=== PATIENT | male | born 1965 | race Caucasian/White ===

== ENCOUNTER 2018-03-29 19:33 | Observation (INO) | payer OTHER, MEDICAID, SELFPAY ==
[2018-03-29 19:36] VITALS: BP 145/90; PULSE 111; RESP 17; TEMP 37.1; O2SAT 97; BMI 29.7
--- NOTE | 2018-03-29 19:47 | DI.RAD.S_ITS ---
PROCEDURE: XR CHEST 1V INDICATIONS: chest pain TECHNIQUE: One view of the chest was acquired. COMPARISON: None. FINDINGS: Surgical changes and devices: None. Lungs and pleura: No pleural effusions or pneumothorax. Lungs are clear. Mediastinum: Mediastinal contours appear normal. Heart size is normal. Bones and chest wall: No suspicious bony lesions. Overlying soft tissues appear unremarkable. IMPRESSION: 1. No acute cardiopulmonary disease. Dictated by: Vishnu Alcala M.D. on 03/29/2018 at 20:16 Approved by: Vishnu Alcala M.D. on 03/29/2018 at 20:16
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
[2018-03-29] MEDS: KETOROLAC 60 MG/2 ML VIAL IM (21:04)
[2018-03-29 21:09] LABS: Add Manual Diff / Slide Review NO; Basophils Percent Auto 0.6 % (0-2); Hematocrit 44.8 % (41-53); Hemoglobin 15.5 g/dL (13.5-17.5); Lymphocytes Percent Auto 10.7 % (25-40); Mean Corpuscular HGB Conc 34.6 % (30-36); Mean Corpuscular Hemoglobin 31.2 PG (26-34); Mean Corpuscular Volume 90.3 fL (80-100); Monocytes Percent Auto 11.1 % (3-14); Neutrophils Absolute Auto 10800 /uL (3000-5900); Neutrophils Percent Auto 77.6 % (50-75); Platelet Count 189 X10^3/uL (150-400); Red Blood Cell Count 4.96 X10^6/uL (4.5-5.9); White Blood Cell Count 13.9 X10^3/uL (4.5-11.0)
[2018-03-29 21:21] LABS: Alanine Aminotransferase 56 IU/L (21-72); Albumin 5.2 g/dL (3.5-5.0); Albumin Globulin Ratio 1.8 (1.0-2.8); Alkaline Phosphatase 55 U/L (38-126); Aspartate Aminotransferase 56 IU/L (17-59); BUN Creatinine Ratio 19.2 (6-22); Bilirubin Total 1.2 mg/dL (0.2-1.3); Blood Urea Nitrogen 23 mg/dL (9-20); Calcium 10.1 mg/dL (8.4-10.2); Carbon Dioxide 28 mmol/L (22-32); Chloride 99 mmol/L (98-107); Estimated Glomerular Filt Rate > 60.0 mL/min (>60); Globulin 2.9 g/dL (1.7-4.1); Glucose 127 mg/dL (70-100); Lipase 127 U/L (23-300); Potassium 3.6 mmol/L (3.4-5.1); Sodium 138 mmol/L (137-145); Total Protein 8.1 g/dL (6.3-8.2)
[2018-03-29 21:28] LABS: Creatine Kinase 2140 U/L (55-170); HEMOLYSIS < 15 (0-50)
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
[2018-03-29 22:01] LABS: CKMB % Relative Index 0.2 % (1.5-5.0); Creatine Kinase MB 4.49 ng/mL (<2.37)
[2018-03-29 22:26] LABS: Ethanol (ETOH) < 10 mg/dL
[2018-03-29] MEDS: MORPHINE 2 MG/ML INJ IV (22:30)
[2018-03-29] MEDS: SODIUM CHLORIDE 0.9% 1,000 ML 2000 ML IV (22:30)
[2018-03-29] MEDS: PANTOPRAZOLE 40 MG VIAL IV (22:30)
[2018-03-29 22:49] LABS: Urine Amphetamines Negative (Negative); Urine Barbiturates Negative (Negative); Urine Benzodiazepines Negative (Negative); Urine Cocaine Negative (Negative); Urine MDMA Negative (Negative); Urine Methadone Negative (Negative); Urine Methamphetamines Negative (Negative); Urine Morphine/Opi cutoff 2000 Positive (Negative); Urine Oxycodone Negative (Negative); Urine Phencyclidine Negative (Negative); Urine Tetrahydrocannabinol Positive (Negative); Urine Tricyclic Antidepressant Negative (Negative)
[2018-03-29 22:49] LABS: Bacteria Urine None Seen; RBC Urine None Seen (0-5/HPF); WBC Urine None Seen (0-5/HPF)
[2018-03-29] MEDS: ONDANSETRON 4 MG/2 ML INJ IV (22:50)
--- NOTE | 2018-03-29 22:53 | PC.NURSE ---
Patient has been cooperative after provider explained plan of care. Pt states he just has been having a hard time dealing with his pain. States he has constant pain in his neck and back. Pt also states he has chronic gastritis and forgot to take his omeprazole this morning. Patient has a lot to talk about regarding his condition and has been compliant with care as long as care is explained. Pt verbalizes understanding of care and admitting process.
[2018-03-29 23:01] LABS: Culture Indicated Urine Cult Not Indicated; Urine Comments Microscopic Normal
[2018-03-30] VITALS (9 sets, daily range): BP systolic 103–171; BP diastolic 60–98; PULSE 52–76; RESP 16–20; TEMP 36.3–37.2; O2SAT 95–99; BMI 29.7
[2018-03-30] MEDS: MORPHINE 2 MG/ML INJ IV ×4 (00:22→14:15)
[2018-03-30] MEDS: SODIUM CHLORIDE 0.9% 1,000 ML 200 ML IV ×4 (01:34→20:18)
--- NOTE | 2018-03-30 04:43 | PC.NURSE ---
Admission Note Pt was admitted to the Acute Care unit at 0050 from the ED. AOx3. Pt rambles, and unable to stay focused when asked simple questions. No observed signs of agitation or aggression. RA 98%. Pt complained of back pain and muscle aches in the legs. Denies chest pain. Completed admission with pt and SO. When receiving report from ED, this fha underwriter was told he has no home medications. Well admitting pt, pt stated he takes lisinopril but unsure of doses. Asked SO to bring medications from home in the AM. Pt reports [facility] in [place] is his pharmacy. Pt also states he was prescribed a muscle relaxer recently from [facility] but has stopped taking as it was not helpful. Call light in reach.
[2018-03-30 05:10] LABS: BUN Creatinine Ratio 18.9 (6-22); Blood Urea Nitrogen 17 mg/dL (9-20); Carbon Dioxide 26 mmol/L (22-32); Chloride 105 mmol/L (98-107); Estimated Glomerular Filt Rate > 60.0 mL/min (>60); Glucose 117 mg/dL (70-100); Potassium 3.7 mmol/L (3.4-5.1); Sodium 140 mmol/L (137-145)
[2018-03-30 05:22] LABS: Troponin I 0.058 ng/mL (0.01-0.034)
[2018-03-30 05:37] LABS: Creatine Kinase 4219 U/L (55-170)
[2018-03-30 05:48] LABS: CKMB % Relative Index 0.2 % (1.5-5.0); Creatine Kinase MB 7.16 ng/mL (<2.37)
[2018-03-30 06:44] LABS: Add Manual Diff / Slide Review NO; Basophils Percent Auto 0.8 % (0-2); Eosinophils Percent Auto 0.8 % (2-4); Hematocrit 40.8 % (41-53); Hemoglobin 14.1 g/dL (13.5-17.5); Lymphocytes Percent Auto 28.3 % (25-40); Mean Corpuscular HGB Conc 34.6 % (30-36); Mean Corpuscular Hemoglobin 31.5 PG (26-34); Mean Corpuscular Volume 91.1 fL (80-100); Monocytes Percent Auto 11.4 % (3-14); Neutrophils Absolute Auto 4000 /uL (3000-5900); Neutrophils Percent Auto 58.7 % (50-75); Platelet Count 155 X10^3/uL (150-400); Red Blood Cell Count 4.48 X10^6/uL (4.5-5.9); Red Cell Distribution Width 13.1 % (11.6-14.8); White Blood Cell Count 6.8 X10^3/uL (4.5-11.0)
[2018-03-30 06:47] LABS: Alanine Aminotransferase 51 IU/L (21-72); Albumin 4.1 g/dL (3.5-5.0); Albumin Globulin Ratio 1.7 (1.0-2.8); Alkaline Phosphatase 38 U/L (38-126); Aspartate Aminotransferase 124 IU/L (17-59); Bilirubin Total 1.3 mg/dL (0.2-1.3); Globulin 2.4 g/dL (1.7-4.1); HEMOLYSIS 24 (0-50); Total Protein 6.5 g/dL (6.3-8.2)
--- NOTE | 2018-03-30 08:30 | PM.HP.1 ---
History of Present Illness Date Patient Seen: 03/30/18 Time Patient Seen: 05:46 Chief complaint: BACK PAIN Narrative: Chief complaint Back pain and emotional turmoil History of present illness Patient is a 52 years of age male with prior history of bipolar disorder. Patient has not been treated for his bipolar disorder for an indeterminate period of years. 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 Patient has GERD symptoms which appeared to distal lower from taking nonsteroidal anti-inflammatories regularly. Patient notes that the Tylenol does not seem to help. 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 Patient admits that he gets upset rather easily and then he gets fuzzy minded and can't think clearly. Patient notes his father was like this in the past. After long discussion with the patient about his problems and issues I feel I have gained the patient's trust and recommending various remedy for his various lifelong and circumstantial problems. Patient also notes history of seizures that appear grand mal as opposed to complex partial seizures. Patient has been using cannabinoids instead of THC over the years. I explained the patient about the withdrawal phenomena related to cannabinoid that can render patient's confused agitated and even suffering seizures. The medication I am recommending for the bipolar disorder include valproic acid, I recognized antiseizure med as well as useful mood stabilizer for patients with bipolar. Patient also has difficulty with sleeping and insomnia which can also occur when withdrawing from THC or cannabinoid. I am also recommending Seroquel, starting at 50 mg tonight to help promote better sleep habits and also for the bipolar disorder and associated psychotic thinking.. Patient has admitted on occasion that he has felt a bit more paranoid than he thought he should. We talked about some of the manifestations of bipolar disorder that can disrupt patient's well-being. Patient appears quite anxious to move forward and allow these medications to come aboard and used regularly. Will plan to start the Depakote with IV loading dose of 1500 mg today, then Depakote extended release 750 mg each morning which could of course be ramped upward if indicated to do so. Patient also has hyperlipidemia that is not normally well managed. will check a fasting lipid panel in am tomorrow first. Patient History Medical History Bipolar 1 disorder (Acute) Surgical History History of tonsillectomy Status post arthroscopy Comment: Past medical history Bipolar disorder History of grand mal seizures last episode a week ago Hyperlipidemia Chronic back pain No prior history of the following---diabetes mellitus, hypertension, cancer Family & Social History Social History: household members significant other Prior Living Arrangements House Safety & Behavioral: Feels Safe in Current Yes Environment Been Physically Hurt or No Threatened By a Person Suicidal Ideation Description None Suicide Plan Description No Plan Tobacco & Substance use: Tobacco type cannabis/marijuana Smoking Status Current every day smoker alcohol intake frequency 0-2 drinks per day Substance Use Type marijuana,opiates Comment: Social history Patient notes he smokes THC but not cigarettes tobacco No alcohol abuse Surgical history Left knee arthroscopic surgery year 1999 Family history Father with history of stroke Mother with atherosclerotic heart disease Meds Home Medications Medication Instructions Recorded Confirmed Type No Known Home Medications 03/30/18 History Allergies Allergy/AdvReac Type Severity Reaction Status Date / Time atorvastatin [ATORVASTATIN] Allergy Unknown Verified 03/29/18 19:36 Review of Systems Review of Systems A 10 point review of system reviewed with patient was negative except for the symptoms as follow-up Chronic back pain and shoulder pain, often feeling upset and agitated, GERD symptoms. Exam Vital Signs (past 8 hours): - 03/30/18 00:50 03/30/18 04:05 Temperature 97.3 F L 98.0 F Pulse Rate 63 57 L Respiratory Rate 16 20 Blood Pressure 145/98 H 111/80 Pulse Oximetry 98 97 Oxygen Delivery Method Room Air Oxygen Flow Rate 0 Narrative Exam Narrative: General appearance a robust middle-age male who is awake and alert, \ Psychiatric well oriented to time place person, mood is pleasant affect is appropriate. Very appropriate and honest during our conversation Skin no rashes or lesions no dermatitis nonjaundiced good turgor Eyes pupils are equal round and reactive to light Ears nose and throat hearing grossly intact dentition is good no oropharyngeal lesions nose septum to midline no bleeding Respiratory good airflow no wheezes no crackles Cardiovascular regular rate rhythm no murmurs +3 pulses to extremities GI benign soft nontender positive bowel sounds no pedal splenomegaly Neurologic no focal neurologic changes cranial nerves 2-12 grossly intact Musculoskeletal motor strength 5/5 range of motion good no clubbing Objective Labs Result Diagrams: 03/30/18 04:52 03/30/18 04:52 Labs: Laboratory Results - last 24 hr 03/29/18 03/29/18 03/29/18 21:00 21:00 21:00 WBC 13.9 H RBC 4.96 Hgb 15.5 Hct 44.8 MCV 90.3 MCH 31.2 MCHC 34.6 RDW 13.0 Plt Count 189 Neut % (Auto) 77.6 H Lymph % (Auto) 10.7 L Kimball % (Auto) 11.1 Eos % (Auto) 0.0 L Baso % (Auto) 0.6 Neut # (Auto) 66072 H Sodium 138 Potassium 3.6 Chloride 99 Carbon Dioxide 28 BUN 23 H Creatinine 1.20 Estimated GFR > 60.0 BUN/Creatinine Ratio 19.2 Glucose 127 H Calcium 10.1 Total Bilirubin 1.2 AST 56 ALT 56 Alkaline Phosphatase 55 Total Creatine Kinase 2140 H CK-MB (CK-2) 4.49 H CK-MB (CK-2) Rel Index 0.2 L Troponin I 0.080 H Total Protein 8.1 Albumin 5.2 H Globulin 2.9 Albumin/Globulin Ratio 1.8 Lipase 127 Urine RBC Urine WBC Urine Bacteria Ur Culture Indicated? Micro UA Comment Urine Opiates Screen Ur Oxycodone Screen Urine Methadone Screen Ur Barbiturates Screen U Tricyclic Antidepress Ur Phencyclidine Scrn Ur Amphetamines Screen U Methamphetamines Scrn Ur MDMA Scrn (Ecstasy) U Benzodiazepines Scrn Urine Cocaine Screen U Marijuana (THC) Screen Ethyl Alcohol < 10 03/29/18 03/29/18 03/30/18 22:40 22:48 04:52 WBC RBC Hgb Hct MCV MCH MCHC RDW Plt Count Neut % (Auto) Lymph % (Auto) Kimball % (Auto) Eos % (Auto) Baso % (Auto) Neut # (Auto) Sodium 140 Potassium 3.7 Chloride 105 Carbon Dioxide 26 BUN 17 Creatinine 0.90 Estimated GFR > 60.0 BUN/Creatinine Ratio 18.9 Glucose 117 H Calcium 9.0 Total Bilirubin 1.3 AST 124 H ALT 51 Alkaline Phosphatase 38 Total Creatine Kinase 4219 H D CK-MB (CK-2) 7.16 H D CK-MB (CK-2) Rel Index 0.2 L Troponin I 0.058 H Total Protein 6.5 Albumin 4.1 Globulin 2.4 Albumin/Globulin Ratio 1.7 Lipase Urine RBC None seen Urine WBC None seen Urine Bacteria None seen Ur Culture Indicated? Cult not indicated Micro UA Comment Microscopic normal Urine Opiates Screen Positive H Ur Oxycodone Screen Negative Urine Methadone Screen Negative Ur Barbiturates Screen Negative U Tricyclic Antidepress Negative Ur Phencyclidine Scrn Negative Ur Amphetamines Screen Negative U Methamphetamines Scrn Negative Ur MDMA Scrn (Ecstasy) Negative U Benzodiazepines Scrn Negative Urine Cocaine Screen Negative U Marijuana (THC) Screen Positive H Ethyl Alcohol 03/30/18 04:52 WBC 6.8 D RBC 4.48 L Hgb 14.1 Hct 40.8 L MCV 91.1 MCH 31.5 MCHC 34.6 RDW 13.1 Plt Count 155 Neut % (Auto) 58.7 Lymph % (Auto) 28.3 Kimball % (Auto) 11.4 Eos % (Auto) 0.8 L Baso % (Auto) 0.8 Neut # (Auto) 4000 Sodium Potassium Chloride Carbon Dioxide BUN Creatinine Estimated GFR BUN/Creatinine Ratio Glucose Calcium Total Bilirubin AST ALT Alkaline Phosphatase Total Creatine Kinase CK-MB (CK-2) CK-MB (CK-2) Rel Index Troponin I Total Protein Albumin Globulin Albumin/Globulin Ratio Lipase Urine RBC Urine WBC Urine Bacteria Ur Culture Indicated? Micro UA Comment Urine Opiates Screen Ur Oxycodone Screen Urine Methadone Screen Ur Barbiturates Screen U Tricyclic Antidepress Ur Phencyclidine Scrn Ur Amphetamines Screen U Methamphetamines Scrn Ur MDMA Scrn (Ecstasy) U Benzodiazepines Scrn Urine Cocaine Screen U Marijuana (THC) Screen Ethyl Alcohol Assessment & Plan Plan: Assessment/Plan Narrative: Rhabdomyolysis CK high at [address] CK levels 2 L of normal saline given in the ER will continue with normal saline at 200 cc an hour Bipolar disorder Depakote 1500 mg IV loading dose today Starting Depakote extended release 750 mg each morning in a.m. 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 b.i.d. As a GI protective med also Protonix each morning 40 mg Hyperlipidemia Lipid panel in a.m. tomorrow fasting GERD symptoms Add on Protonix 40 mg each morning Note the Protonix is also a GI protective med for the naproxen Time Spent With Patient Time with patient: Greater than 35 minutes (60 min to admit) Quality VTE Deep Vein Thrombosis/Pulmonary Embolism Present on Admission: No
--- NOTE | 2018-03-30 08:38 | P.HP_ITS ---
History of Present Illness Date Patient Seen: 03/30/18 Time Patient Seen: 05:46 Chief complaint: BACK PAIN Narrative: Chief complaint Back pain and emotional turmoil History of present illness Patient is a 52 years of age male with prior history of bipolar disorder. Patient has not been treated for his bipolar disorder for an indeterminate period of years. 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 Patient has GERD symptoms which appeared to distal lower from taking nonsteroidal anti- inflammatories regularly. Patient notes that the Tylenol does not seem to help. 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 Patient admits that he gets upset rather easily and then he gets fuzzy minded and can't think clearly. Patient notes his father was like this in the past. After long discussion with the patient about his problems and issues I feel I have gained the patient's trust and recommending various remedy for his various lifelong and circumstantial problems. Patient also notes history of seizures that appear grand mal as opposed to complex partial seizures. Patient has been using cannabinoids instead of THC over the years. I explained the patient about the withdrawal phenomena related to cannabinoid that can render patient's confused agitated and even suffering seizures. The medication I am recommending for the bipolar disorder include valproic acid, I recognized antiseizure med as well as useful mood stabilizer for patients with bipolar. Patient also has difficulty with sleeping and insomnia which can also occur when withdrawing from THC or cannabinoid. I am also recommending Seroquel, starting at 50 mg tonight to help promote better sleep habits and also for the bipolar disorder and associated psychotic thinking.. Patient has admitted on occasion that he has felt a bit more paranoid than he thought he should. We talked about some of the manifestations of bipolar disorder that can disrupt patient's well-being. Patient appears quite anxious to move forward and allow these medications to come aboard and used regularly. Will plan to start the Depakote with IV loading dose of 1500 mg today, then Depakote extended release 750 mg each morning which could of course be ramped upward if indicated to do so. Patient also has hyperlipidemia that is not normally well managed. will check a fasting lipid panel in am tomorrow first. Patient History Medical History Bipolar 1 disorder (Acute) Surgical History History of tonsillectomy Status post arthroscopy Comment: Past medical history Bipolar disorder History of grand mal seizures last episode a week ago Hyperlipidemia Chronic back pain No prior history of the following---diabetes mellitus, hypertension, cancer Family & Social History Social History: household members significant other Prior Living Arrangements House Safety & Behavioral: Feels Safe in Current Yes Environment Been Physically Hurt or No Threatened By a Person Suicidal Ideation Description None Suicide Plan Description No Plan Tobacco & Substance use: Tobacco type cannabis/marijuana Smoking Status Current every day smoker alcohol intake frequency 0-2 drinks per day Substance Use Type marijuana,opiates Comment: Social history Patient notes he smokes THC but not cigarettes tobacco No alcohol abuse Surgical history Left knee arthroscopic surgery year 1999 Family history Father with history of stroke Mother with atherosclerotic heart disease Meds Home Medications Medication Instructions Recorded Confirmed Type No Known Home Medications 03/30/18 History Allergies Allergy/AdvReac Type Severity Reaction Status Date / Time atorvastatin [ATORVASTATIN] Allergy Unknown Verified 03/29/18 19:36 Review of Systems Review of Systems A 10 point review of system reviewed with patient was negative except for the symptoms as follow-up Chronic back pain and shoulder pain, often feeling upset and agitated, GERD symptoms. Exam Vital Signs (past 8 hours): - 03/30/18 00:50 03/30/18 04:05 Temperature 97.3 F L 98.0 F Pulse Rate 63 57 L Respiratory Rate 16 20 Blood Pressure 145/98 H 111/80 Pulse Oximetry 98 97 Oxygen Delivery Method Room Air Oxygen Flow Rate 0 Narrative Exam Narrative: General appearance a robust middle-age male who is awake and alert, \ Psychiatric well oriented to time place person, mood is pleasant affect is appropriate. Very appropriate and honest during our conversation Skin no rashes or lesions no dermatitis nonjaundiced good turgor Eyes pupils are equal round and reactive to light Ears nose and throat hearing grossly intact dentition is good no oropharyngeal lesions nose septum to midline no bleeding Respiratory good airflow no wheezes no crackles Cardiovascular regular rate rhythm no murmurs +3 pulses to extremities GI benign soft nontender positive bowel sounds no pedal splenomegaly Neurologic no focal neurologic changes cranial nerves 2-12 grossly intact Musculoskeletal motor strength 5/5 range of motion good no clubbing Objective Labs Result Diagrams: 03/30/18 04:52 03/30/18 04:52 Labs: Laboratory Results - last 24 hr 03/29/18 03/29/18 03/29/18 21:00 21:00 21:00 WBC 13.9 H RBC 4.96 Hgb 15.5 Hct 44.8 MCV 90.3 MCH 31.2 MCHC 34.6 RDW 13.0 Plt Count 189 Neut % (Auto) 77.6 H Lymph % (Auto) 10.7 L Todd % (Auto) 11.1 Eos % (Auto) 0.0 L Baso % (Auto) 0.6 Neut # (Auto) 26001 H Sodium 138 Potassium 3.6 Chloride 99 Carbon Dioxide 28 BUN 23 H Creatinine 1.20 Estimated GFR > 60.0 BUN/Creatinine Ratio 19.2 Glucose 127 H Calcium 10.1 Total Bilirubin 1.2 AST 56 ALT 56 Alkaline Phosphatase 55 Total Creatine Kinase 2140 H CK-MB (CK-2) 4.49 H CK-MB (CK-2) Rel Index 0.2 L Troponin I 0.080 H Total Protein 8.1 Albumin 5.2 H Globulin 2.9 Albumin/Globulin Ratio 1.8 Lipase 127 Urine RBC Urine WBC Urine Bacteria Ur Culture Indicated? Micro UA Comment Urine Opiates Screen Ur Oxycodone Screen Urine Methadone Screen Ur Barbiturates Screen U Tricyclic Antidepress Ur Phencyclidine Scrn Ur Amphetamines Screen U Methamphetamines Scrn Ur MDMA Scrn (Ecstasy) U Benzodiazepines Scrn Urine Cocaine Screen U Marijuana (THC) Screen Ethyl Alcohol < 10 03/29/18 03/29/18 03/30/18 22:40 22:48 04:52 WBC RBC Hgb Hct MCV MCH MCHC RDW Plt Count Neut % (Auto) Lymph % (Auto) Todd % (Auto) Eos % (Auto) Baso % (Auto) Neut # (Auto) Sodium 140 Potassium 3.7 Chloride 105 Carbon Dioxide 26 BUN 17 Creatinine 0.90 Estimated GFR > 60.0 BUN/Creatinine Ratio 18.9 Glucose 117 H Calcium 9.0 Total Bilirubin 1.3 AST 124 H ALT 51 Alkaline Phosphatase 38 Total Creatine Kinase 4219 H D CK-MB (CK-2) 7.16 H D CK-MB (CK-2) Rel Index 0.2 L Troponin I 0.058 H Total Protein 6.5 Albumin 4.1 Globulin 2.4 Albumin/Globulin Ratio 1.7 Lipase Urine RBC None seen Urine WBC None seen Urine Bacteria None seen Ur Culture Indicated? Cult not indicated Micro UA Comment Microscopic normal Urine Opiates Screen Positive H Ur Oxycodone Screen Negative Urine Methadone Screen Negative Ur Barbiturates Screen Negative U Tricyclic Antidepress Negative Ur Phencyclidine Scrn Negative Ur Amphetamines Screen Negative U Methamphetamines Scrn Negative Ur MDMA Scrn (Ecstasy) Negative U Benzodiazepines Scrn Negative Urine Cocaine Screen Negative U Marijuana (THC) Screen Positive H Ethyl Alcohol 03/30/18 04:52 WBC 6.8 D RBC 4.48 L Hgb 14.1 Hct 40.8 L MCV 91.1 MCH 31.5 MCHC 34.6 RDW 13.1 Plt Count 155 Neut % (Auto) 58.7 Lymph % (Auto) 28.3 Todd % (Auto) 11.4 Eos % (Auto) 0.8 L Baso % (Auto) 0.8 Neut # (Auto) 4000 Sodium Potassium Chloride Carbon Dioxide BUN Creatinine Estimated GFR BUN/Creatinine Ratio Glucose Calcium Total Bilirubin AST ALT Alkaline Phosphatase Total Creatine Kinase CK-MB (CK-2) CK-MB (CK-2) Rel Index Troponin I Total Protein Albumin Globulin Albumin/Globulin Ratio Lipase Urine RBC Urine WBC Urine Bacteria Ur Culture Indicated? Micro UA Comment Urine Opiates Screen Ur Oxycodone Screen Urine Methadone Screen Ur Barbiturates Screen U Tricyclic Antidepress Ur Phencyclidine Scrn Ur Amphetamines Screen U Methamphetamines Scrn Ur MDMA Scrn (Ecstasy) U Benzodiazepines Scrn Urine Cocaine Screen U Marijuana (THC) Screen Ethyl Alcohol Assessment & Plan Plan: Assessment/Plan Narrative: Rhabdomyolysis CK high at [address] CK levels 2 L of normal saline given in the ER will continue with normal saline at 200 cc an hour Bipolar disorder Depakote 1500 mg IV loading dose today Starting Depakote extended release 750 mg each morning in a.m. 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 b.i.d. As a GI protective med also Protonix each morning 40 mg Hyperlipidemia Lipid panel in a.m. tomorrow fasting GERD symptoms Add on Protonix 40 mg each morning Note the Protonix is also a GI protective med for the naproxen Time Spent With Patient Time with patient: Greater than 35 minutes (60 min to admit) Quality VTE Deep Vein Thrombosis/Pulmonary Embolism Present on Admission: No
[2018-03-30] MEDS: WATER IV (11:23)
[2018-03-30] MEDS: DEXTROSE 5% IV (11:23)
[2018-03-30] MEDS: VALPROIC ACID IV (11:23)
--- NOTE | 2018-03-30 14:56 | PC.NURSE ---
1:1 with this patient today. This gentleman has a lot going on however has stated a desire to make a positive change in his life. Completely non combative, cooperative, and willing to participate in care. After he spoke with his mother, however, he became fairly frustrated. I sat with him for a while and allowed him to vent, which seemed to be very effective in helping him gather his thoughts. He was not aggressive or threatening. He stated things like she [his mother] has never even told me she loves me. He spoke about desiring a change in his current situation, I encouraged him to focus on himself - especially while under our care - so he can approach other life problems appropriately and with care.
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
[2018-03-30] MEDS: NAPROXEN 250 MG TABLET 500 MG PO (17:12)
--- NOTE | 2018-03-30 18:39 | PC.NURSE ---
Addendum entered by Apryl Stanley R.N. 03/30/18 22:29: Pt given new med at 1900- pt able to remain calm throughout the shift. able to relax and got some sleep, fluids changed. will continue to monitor. remains 1:1. Original Note: 1500- assumed care of pt from outgoing shift. Pt awake and alert. cooperative with bedside report. uses call light. has 1:1 sitter and responds well. compliant with nursing staff, talkative and kind at this time. complains of pain to the left neck and shoulder and chronic back pain. pt went for a walk. brushed teeth. using call light. will continue to monitor pt for safety.
[2018-03-30] MEDS: QUETIAPINE 25 MG TABLET 50 MG PO (19:03)
--- NOTE | 2018-03-30 23:36 | PC.NURSE ---
note 1ST PRESSMAN Ara called this teletypewriter installer at 0882 that she placed 12 lead order for pt due to elevated T wave. kohinoor operator reported T wave is longer (perhaps due to being bradycardic- 40-43BPM). Currently waiting on results.
[2018-03-31] VITALS (10 sets, daily range): BP systolic 96–132; BP diastolic 54–81; PULSE 52–62; RESP 16–20; TEMP 36.4–37.2; O2SAT 97–100
[2018-03-31] MEDS: SODIUM CHLORIDE 0.9% 1,000 ML 200 ML IV ×3 (01:24→11:51)
[2018-03-31 05:55] LABS: Add Manual Diff / Slide Review NO; Basophils Percent Auto 1.3 % (0-2); Eosinophils Percent Auto 3.3 % (2-4); Hematocrit 36.3 % (41-53); Hemoglobin 12.6 g/dL (13.5-17.5); Lymphocytes Percent Auto 56.4 % (25-40); Mean Corpuscular HGB Conc 34.8 % (30-36); Mean Corpuscular Hemoglobin 31.8 PG (26-34); Mean Corpuscular Volume 91.4 fL (80-100); Monocytes Percent Auto 12.4 % (3-14); Neutrophils Absolute Auto 1000 /uL (3000-5900); Platelet Count 119 X10^3/uL (150-400); Red Blood Cell Count 3.97 X10^6/uL (4.5-5.9); Red Cell Distribution Width 13.6 % (11.6-14.8); White Blood Cell Count 3.7 X10^3/uL (4.5-11.0)
[2018-03-31 06:04] LABS: Alanine Aminotransferase 52 IU/L (21-72); Albumin 3.1 g/dL (3.5-5.0); Albumin Globulin Ratio 1.4 (1.0-2.8); Alkaline Phosphatase 31 U/L (38-126); Aspartate Aminotransferase 64 IU/L (17-59); BUN Creatinine Ratio 16.3 (6-22); Bilirubin Total 0.7 mg/dL (0.2-1.3); Blood Urea Nitrogen 13 mg/dL (9-20); Calcium 8.3 mg/dL (8.4-10.2); Carbon Dioxide 26 mmol/L (22-32); Chloride 110 mmol/L (98-107); Estimated Glomerular Filt Rate > 60.0 mL/min (>60); Globulin 2.2 g/dL (1.7-4.1); Glucose 86 mg/dL (70-100); HEMOLYSIS 20 (0-50); Sodium 141 mmol/L (137-145); Total Protein 5.3 g/dL (6.3-8.2)
[2018-03-31 06:10] LABS: Creatine Kinase 2041 U/L (55-170)
[2018-03-31] MEDS: PANTOPRAZOLE 40 MG TABLET PO (06:32)
[2018-03-31 07:03] LABS: Neutrophils Percent Auto 26.6 % (50-75)
[2018-03-31] MEDS: ONDANSETRON 4 MG/2 ML INJ IV (08:10)
--- NOTE | 2018-03-31 08:33 | PC.NURSE ---
AM NOTE - pt asleep, Raya ICU nurse came upstairs with tele strip to show that pt hr had dropped to 37, pt awakened, bp done 124/81, hr 48 irreg apical, no reports chest pain, shown strip and new order rec'd, stat ekg done and troponin drawn, pt reported some initial on/off nausea overnight, given 4mg iv zofran, able sit up and start breakfast, pt SO Jossie arrived and is at bedside, ra 100%.
[2018-03-31 08:40] LABS: Creatine Kinase 1541 U/L (55-170)
[2018-03-31 08:53] LABS: Troponin I 0.013 ng/mL (0.01-0.034)
[2018-03-31 09:25] LABS: CKMB % Relative Index 0.2 % (1.5-5.0); Creatine Kinase MB 2.76 ng/mL (<2.37)
[2018-03-31] MEDS: DIVALPROEX ER 250 MG TAB 750 MG PO (09:45)
[2018-03-31] MEDS: NAPROXEN 250 MG TABLET 500 MG PO ×2 (09:46→17:26)
--- NOTE | 2018-03-31 10:00 | CM.DPC ---
DCP/continued: Reviewed HUMAN INTELLIGENCE notes. Patient seen and evaluated by HUMAN INTELLIGENCE on 03-30-18 (refer to Social Work Notes for details). Update from Dr. Bishop in AM rounds. D/C home anticipated tomorrow 04-01-18. Patient and significant/Jossie have been provided with community resources for outpatient mental health follow up. Discharge Planning/Care Management CM Discharge Assessment Start: 03/31/18 09:51 Freq: Status: Active Protocol: Document 03/31/18 09:52 S (Rec: 03/31/18 10:00 KJS [id number]) Discharge Planning Assessment Assigned Storage Battery Charger JASWINDER Hairston Advance Directives? No Advance Directives on File No History Provided By Patient Significant Other Prior Living Arrangements House Household Members significant other Comment HUMAN INTELLIGENCE note done by Apryl Johnston on 03-30-18. See note for details. Review Status In Process Please Provide Date Initial DC 03/30/18 Assessment Was Performed Next Review Type Continued Stay Review
--- NOTE | 2018-03-31 11:37 | P.PN_ITS ---
Subjective Date Patient Seen: 03/31/18 Time Patient Seen: 06:38 Interval history: Patient is a 52 years of age male with prior history of bipolar disorder. Patient has not been treated for his bipolar disorder for an indeterminate period of years. 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 Patient has GERD symptoms which appeared to distal lower from taking nonsteroidal anti-inflammatories regularly. Patient notes that the Tylenol does not seem to help. 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 Patient admits that he gets upset rather easily and then he gets fuzzy minded and can't think clearly. Patient notes his father was like this in the past. After long discussion with the patient about his problems and issues I feel I have gained the patient's trust and recommending various remedy for his various lifelong and circumstantial problems. Patient also notes history of seizures that appear grand mal as opposed to complex partial seizures. Patient has been using cannabinoids instead of THC over the years. I explained the patient about the withdrawal phenomena related to cannabinoid that can render patient's confused agitated and even suffering seizures. The medication I am recommending for the bipolar disorder include valproic acid, is a recognized antiseizure med as well as effective mood stabilizer for patients with bipolar. Patient also has difficulty with sleeping and insomnia which can also occur when withdrawing from THC or cannabinoid. I am also recommending Seroquel, starting at 50 mg last night to help promote better sleep habits and also for the bipolar disorder and associated psychotic thinking.. Patient has admitted on occasion that he has felt a bit more paranoid than he thought he should. We talked about some of the manifestations of bipolar disorder that can disrupt patient's well-being. Seroquel increased to 100 mg at bedtime tonight Patient appears quite anxious to move forward and allow these medications to come aboard and used regularly. Will plan to start the Depakote with IV loading dose of 1500 mg today, then Depakote extended release 750 mg each morning which could of course be ramped upward if indicated to do so. Patient also has HTN and hyperlipidemia that is not normally well managed. Fasting lipid panel in am today This this morning patient with a sinus bradycardia with a rate of 37 with blood pressure stable at the time. Likely related to the IV valproic acid that I started yesterday. Less than 1% risk of bradycardia with Seroquel or valproic acid. As discussed with pharmacist in a.m. today will continue with present plan of continuing the medications orally. Exam Vital Signs (past 8 hours): - 03/31/18 05:11 03/31/18 08:17 03/31/18 10:24 Temperature 97.7 F 98.2 F Pulse Rate 53 L 52 L Respiratory Rate 16 18 Blood Pressure 96/54 L 124/81 Pulse Oximetry 98 100 100 03/31/18 10:43 Temperature 98.9 F Pulse Rate 54 L Respiratory Rate 18 Blood Pressure 118/76 Pulse Oximetry 97 Oxygen Delivery Method Room Air Oxygen Flow Rate 0 Narrative Exam Narrative: General appearance he is awake and alert no apparent distress Psychiatric well oriented to time place and person mood is pleasant cooperative Respiratory clear to auscultation no wheezes no crackles Cardiovascular regular rate rhythm no murmurs GI is benign and soft nontender Neurologic no focal neurologic changes no tremors are noted cranial nerves 2-12 grossly intact Objective Labs Result Diagrams: 03/31/18 05:32 03/31/18 05:32 Labs: Laboratory Results - last 24 hr 03/31/18 03/31/18 03/31/18 05:32 05:32 08:25 WBC 3.7 L RBC 3.97 L Hgb 12.6 L Hct 36.3 L MCV 91.4 MCH 31.8 MCHC 34.8 RDW 13.6 Plt Count 119 L Neut % (Auto) 26.6 L D Lymph % (Auto) 56.4 H D [place] % (Auto) 12.4 Eos % (Auto) 3.3 Baso % (Auto) 1.3 Neut # (Auto) 1000 L Sodium 141 Potassium 4.0 Chloride 110 H Carbon Dioxide 26 BUN 13 Creatinine 0.80 Estimated GFR > 60.0 BUN/Creatinine Ratio 16.3 Glucose 86 Calcium 8.3 L Total Bilirubin 0.7 AST 64 H ALT 52 Alkaline Phosphatase 31 L Total Creatine Kinase 2041 H D 1541 H CK-MB (CK-2) 2.76 H CK-MB (CK-2) Rel Index 0.2 L Troponin I 0.013 Total Protein 5.3 L Albumin 3.1 L Globulin 2.2 Albumin/Globulin Ratio 1.4 Assessment & Plan Plan: Assessment/Plan Narrative: Rhabdomyolysis CK high at 4219 and today in AM the CPK is 1541 [place] CK levels 2 L of normal saline given in the ER will continue with normal saline at 200 cc an hour initially Today we will decrease the rate of IV infusion to 125 cc per hour Bipolar disorder Depakote 1500 mg IV loading dose today Starting Depakote extended release 750 mg each morning in a.m. 10 14 Start Seroquel 50 mg at bedtime tonight and increase to 100 mg at bedtime tomorrow air purifier servicer for effect of medication Sinus Bradycardia Will monitor the pulse today with telemetry The cause of the bradycardia likely the combination of the valproic acid and seroquel started Tentative plans to discharge to home tomorrow Chronic back pain and shoulder pain Likely due to osteoarthritis Requesting lumbar views x-ray the day Start naproxen 500 mg p.o. b.i.d. As a GI protective med also Protonix each morning 40 mg Hyperlipidemia Lipid panel in a.m. tomorrow fasting GERD symptoms Add on Protonix 40 mg each morning Note the Protonix is also a GI protective med for the naproxen Time Spent With Patient Time with patient: 25 - 35 minutes (25 min) Quality VTE Deep Vein Thrombosis/Pulmonary Embolism Present on Admission: No
[2018-03-31 12:44] LABS: Creatine Kinase 2090 U/L (55-170)
[2018-03-31 12:52] LABS: Troponin I < 0.012 ng/mL (0.01-0.034)
[2018-03-31 13:10] LABS: CKMB % Relative Index 0.1 % (1.5-5.0); Creatine Kinase MB 2.78 ng/mL (<2.37)
[2018-03-31] MEDS: LORATADINE 10 MG TABLET PO (17:26)
--- NOTE | 2018-03-31 19:34 | PC.NURSE ---
Assumed care of pt at 1500. Pt has been cooperative and pleasant throughout the shift. no mood disturbances at this time. Pt has significant other at bedside. Pt didn't really enjoy dinner, so soup was made and he ate that. Pt calls and waits for assistance. states he feels better today. will continue to monitor pt for safety.
[2018-03-31] MEDS: QUETIAPINE 100 MG TABLET PO (20:02)
[2018-03-31] MEDS: SODIUM CHLORIDE 0.9% 1,000 ML 125 ML IV (20:04)
--- NOTE | 2018-04-01 02:01 | PC.NURSE ---
Remained RN for pt through 299. Pt asleep, arouses to void. cooperative and compliant. uses call light. has 1:1 sitter. cooperative and calm. will continue to monitor.
[2018-04-01] MEDS: SODIUM CHLORIDE 0.9% 1,000 ML 125 ML IV (04:09)
[2018-04-01 05:40] VITALS: BP 113/72; PULSE 51; RESP 16; TEMP 36.5; O2SAT 98
[2018-04-01 06:04] LABS: Add Manual Diff / Slide Review NO; Basophils Percent Auto 1.4 % (0-2); Eosinophils Percent Auto 2.7 % (2-4); Hematocrit 35.7 % (41-53); Hemoglobin 12.6 g/dL (13.5-17.5); Lymphocytes Percent Auto 49.4 % (25-40); Mean Corpuscular HGB Conc 35.2 % (30-36); Mean Corpuscular Hemoglobin 32.2 PG (26-34); Mean Corpuscular Volume 91.4 fL (80-100); Monocytes Percent Auto 10.7 % (3-14); Neutrophils Absolute Auto 1300 /uL (3000-5900); Neutrophils Percent Auto 35.8 % (50-75); Platelet Count 117 X10^3/uL (150-400); Red Blood Cell Count 3.91 X10^6/uL (4.5-5.9); White Blood Cell Count 3.5 X10^3/uL (4.5-11.0)
[2018-04-01 06:25] LABS: Alanine Aminotransferase 51 IU/L (21-72); Albumin 3.1 g/dL (3.5-5.0); Albumin Globulin Ratio 1.4 (1.0-2.8); Alkaline Phosphatase 31 U/L (38-126); Aspartate Aminotransferase 44 IU/L (17-59); BUN Creatinine Ratio 13.8 (6-22); Bilirubin Total 0.7 mg/dL (0.2-1.3); Blood Urea Nitrogen 11 mg/dL (9-20); Calcium 8.4 mg/dL (8.4-10.2); Carbon Dioxide 28 mmol/L (22-32); Chloride 108 mmol/L (98-107); Estimated Glomerular Filt Rate > 60.0 mL/min (>60); Globulin 2.2 g/dL (1.7-4.1); Glucose 88 mg/dL (70-100); HEMOLYSIS < 15 (0-50); Potassium 3.9 mmol/L (3.4-5.1); Sodium 142 mmol/L (137-145); Total Protein 5.3 g/dL (6.3-8.2)
[2018-04-01 06:29] LABS: Cholesterol 147 mg/dL (140-199); HDL Cholesterol 26 mg/dL (40-60); LDL Cholesterol Calculated 98 mg/dL (<100); Triglycerides 113 mg/dL (35-150)
[2018-04-01 06:58] VITALS: BP 125/76; PULSE 49; RESP 18; TEMP 36.1; O2SAT 100
[2018-04-01 07:00] VITALS: O2SAT 99
[2018-04-01] MEDS: NAPROXEN 250 MG TABLET 500 MG PO (08:14)
[2018-04-01] MEDS: DIVALPROEX ER 250 MG TAB 750 MG PO (08:15)
[2018-04-01] MEDS: PANTOPRAZOLE 40 MG TABLET PO (08:15)
--- NOTE | 2018-04-01 08:54 | CM.DPC ---
DCP/continued: Reviewed chart. It is anticipated that patient will d/c home today. Met with patient explained AMERICANIZATION TEACHER role. Patient alert and oriented and reports that he feels ready to go home. Patient denies any suicidal or homicidal thoughts. Patient provided with [facility] brochure and encouraged to call for outpatient mental health appointment. Placed call to [facility] to check on whether or not patient enrolled. Patient not currently enrolled with [facility] services. P: Home today. Community resources have been provided for outpatient mental health follow up. Patient in agreement to follow up. JASWINDER Hairston
--- NOTE | 2018-04-01 12:20 | PC.NURSE ---
Addendum entered by Marisol Pelayo R.N. 04/01/18 13:07: Pt wheeled out to private vehicle. Follow up and d/c instructions reviewed in depth. Original Note: 0330 Assumed care of Pt. Cooperative, using light appropriately. 1:1 supervision. No comments of self harm. No pain. Taking meds with out incident. SBA to BR. Ambulating in halls @ breakfast time with PT. Dr Bishop into see Pt and updated POC to include d/c home this AM. IVF removed, Tele d/c'd. Await orders.
--- NOTE | 2018-04-01 17:34 | P.DS_ITS ---
History of Present Illness Date Patient Seen: 04/01/18 Time Patient Seen: 17:33 Chief complaint: BACK PAIN Narrative: Chief complaint Back pain and emotional turmoil History of present illness Patient is a 52 years of age male with prior history of bipolar disorder. Patient has not been treated for his bipolar disorder for an indeterminate period of years. 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 Patient has GERD symptoms which appeared to distal lower from taking nonsteroidal anti- inflammatories regularly. Patient notes that the Tylenol does not seem to help. 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 Patient admits that he gets upset rather easily and then he gets fuzzy minded and can't think clearly. Patient notes his father was like this in the past. After long discussion with the patient about his problems and issues I feel I have gained the patient's trust and recommending various remedy for his various lifelong and circumstantial problems. Patient also notes history of seizures that appear grand mal as opposed to complex partial seizures. Patient has been using cannabinoids instead of THC over the years. I explained the patient about the withdrawal phenomena related to cannabinoid that can render patient's confused agitated and even suffering seizures. The medication I am recommending for the bipolar disorder include valproic acid, I recognized antiseizure med as well as useful mood stabilizer for patients with bipolar. Patient also has difficulty with sleeping and insomnia which can also occur when withdrawing from THC or cannabinoid. I am also recommending Seroquel, starting at 50 mg tonight to help promote better sleep habits and also for the bipolar disorder and associated psychotic thinking.. Patient has admitted on occasion that he has felt a bit more paranoid than he thought he should. We talked about some of the manifestations of bipolar disorder that can disrupt patient's well-being. Patient appears quite anxious to move forward and allow these medications to come aboard and used regularly. Will plan to start the Depakote with IV loading dose of 1500 mg today, then Depakote extended release 750 mg each morning which could of course be ramped upward if indicated to do so. Patient also has hyperlipidemia that is not normally well managed. will check a fasting lipid panel in am tomorrow first. Discharge Providers Date of admission: 03/29/18 22:58 Primary care physician: Gabriela Bender MD Consults: 03/30/18 00:48 Consult to Physician Routine Comment: Consulting Provider: Miky López Reason for consultation: admission Has provider been notified: Yes Consult to Change Number Operator Stat Comment: possible psychiatric breakdown. hx bipolar Discharge provider: Doni Bishop MD Discharge Date: 04/01/18 Summary Discharge Diagnosis: Rhabdomyolysis CK high at 4219 and today in AM March 30 the CPK was 1541 Patient was discharged within courage min to continue drinking fluids. Bipolar disorder Depakote 1500 mg IV loading dose on day of admission No patient with history of seizures and valproic acid is also an antiseizure med Starting Depakote extended release 750 mg each morning in a.m. with prescription provided to be continued upon discharge Seroquel to be continued at 25 mg at bedtime to promote sleep Sinus Bradycardia The cause of the bradycardia likely the combination of the valproic acid and seroquel started Blood pressure remained stable with the bradycardia in the 40s when he was sleeping last night Upon discharge decrease the Seroquel to 25 mg at bedtime. Chronic back pain and shoulder pain Likely due to osteoarthritis naproxen 500 mg p.o. b.i.d. continued upon discharge with prescription provided As a GI protective med also Protonix each morning 40 mg. Prescription provided Hyperlipidemia Continue medication and outpatient setting to treat Hospital Course: Patient admitted to hospital with rhabdomyolysis and symptoms consistent with a bipolar disorder that is untreated Had a long chat with the patient regarding his mental health history. It seemed I get the patient to be agreeable to be compliant with his medication that will discharge him on to continue management. Terms of his osteoarthritis I started him on naproxen 500 p.o. b.i.d. which will be continued upon discharge Protonix to be provided as a GI protective med. Patient provided referral for outpatient mental health follow-up. Status at Discharge Cognitive/behavioral status at discharge: Well oriented no apparent distress at rest cooperative pleasant mood Exam Vital Signs (past 8 hours): Oxygen Delivery Method Room Air Oxygen Flow Rate 0 Narrative Exam Narrative: Awake and alert in no apparent distress at rest well oriented with good cognitive function patient is cooperative relaxed Respiratory clear to auscultation with good air flow Cardiovascular regular rate rhythm no murmurs GI is benign and soft and nontender Neurologic no focal neurologic changes cranial nerves 2-12 grossly intact Objective Labs Result Diagrams: 04/01/18 05:45 04/01/18 05:45 Labs: Laboratory Results - last 24 hr 04/01/18 04/01/18 04/01/18 05:45 05:45 05:45 WBC 3.5 L RBC 3.91 L Hgb 12.6 L Hct 35.7 L MCV 91.4 MCH 32.2 MCHC 35.2 RDW 13.0 Plt Count 117 L Neut % (Auto) 35.8 L Lymph % (Auto) 49.4 H [place] % (Auto) 10.7 Eos % (Auto) 2.7 Baso % (Auto) 1.4 Neut # (Auto) 1300 L Sodium 142 Potassium 3.9 Chloride 108 H Carbon Dioxide 28 BUN 11 Creatinine 0.80 Estimated GFR > 60.0 BUN/Creatinine Ratio 13.8 Glucose 88 Calcium 8.4 Total Bilirubin 0.7 AST 44 ALT 51 Alkaline Phosphatase 31 L Total Protein 5.3 L Albumin 3.1 L Globulin 2.2 Albumin/Globulin Ratio 1.4 Triglycerides 113 Cholesterol 147 LDL Cholesterol, Calc 98 HDL Cholesterol 26 L Discharge Plan Discharge Plan Patient Disposition: Home Discharge Med Rec/Prescriptions Prescriptions: New divalproex [Depakote ER] 250 mg Tablet Extended Release 24 Hr 750 mg PO DAILY Qty: 30 RF: 6 naproxen 250 mg Tablet 500 mg PO BIDWM Qty: 60 RF: 6 pantoprazole 40 mg Tablet,Delayed Release (Dr/Ec) 40 mg PO 0700 Qty: 30 RF: 6 quetiapine [Seroquel] 25 mg tablet 25 mg PO BEDTIME Qty: 30 RF: 6 Continue baclofen 20 mg tablet 1 tab PO DAILY RF: 0 amlodipine 5 mg tablet 5 mg PO DAILY RF: 0 lisinopril-hydrochlorothiazide 20-12.5 mg tablet 1 tab PO DAILY RF: 0 Provider Discharge Instructions Diet: Diet as Tolerated and Regular Other treatments: Follow UP with [facility] Skin/Wound/Dressing Care Report to your healthcare provider any signs of infection, such as:: night sweats, increased pain and unusual drainage Visit Report/Discharge Packet Instructions: Valproic Acid (Alternative Therapy), Bipolar Disorder, DI for Bipolar Disorder, Pantoprazole, Naproxen, Quetiapine Visit Report Forms: Stroke Signs & Symptoms Discharge Data Primary Care Provider: Gabriela Bender Attending Provider: Miky López Admit Date/Time: 03/29/18 22:58 Discharges patient from system. Discharge Date/Time: 04/01/18 13:08 Quality VTE Deep Vein Thrombosis/Pulmonary Embolism Present on Admission: No
== END 2018-04-01 13:08 | disposition home or self-care (01) ==
LOC: ED 20:09 → AC 22:59
PROVIDERS: Internal Medicine; Admitting Provider Internal Medicine; Emergency Provider Emergency Medicine; Family Provider Family Medicine; PCP Family Medicine; Visit Provider Internal Medicine
DX: M62.82 Rhabdomyolysis (principal); M54.6 Pain in thoracic spine; R07.9 Chest pain, unspecified; F31.9 Bipolar disorder, unspecified; F17.210 Nicotine dependence, cigarettes, uncomplicated; E78.5 Hyperlipidemia, unspecified; K21.9 Gastro-esophageal reflux disease without esophagitis; R00.1 Bradycardia, unspecified
CPT/HCPCS: 36415; 71045; 80053; 80061; 80305; 80320; 81003; 81015; 82550; 82553; 83690; 84484; 85025; 93005; 93010; 96361; 96372; 96374; 96375; 96376; 99283; 99285; G0378; C9113; J1885; J2270; J2405

== ENCOUNTER → 2019-12-06 13:23 | Outpatient (CLI) | payer OTHER, SELFPAY ==
[2018-03-30 00:51] VITALS: BMI 29.7
[2019-12-10 09:01] LABS: COVID19 Sendout Not Detected (Not Detected)
== END ==
PROVIDERS: Visit Provider Physician Assistant
DX: Z11.9 Encounter for screening for infectious and parasitic diseases, unspecified (principal)
CPT/HCPCS: 87635

== ENCOUNTER → 2020-09-22 08:17 | Outpatient (CLI) | payer OTHER, SELFPAY ==
[2018-03-30 00:51] VITALS: BMI 29.7
[2020-09-22] MEDS: COVID-19 VACC #1, MRNA(MOD) 100 MCG/0.5 ML VIAL IM (08:28)
== END ==
PROVIDERS: Visit Provider Internal Medicine
DX: Z23 Encounter for immunization (principal)
CPT/HCPCS: 0011A; 91301

== ENCOUNTER → 2020-10-20 08:25 | Outpatient (CLI) | payer OTHER, SELFPAY ==
[2018-03-30 00:51] VITALS: BMI 29.7
[2020-10-20] MEDS: COVID-19 VACC #2, MRNA(MOD) 100 MCG/0.5 ML VIAL IM (08:31)
== END ==
PROVIDERS: Visit Provider Internal Medicine
DX: Z23 Encounter for immunization (principal)
CPT/HCPCS: 0012A; 91301